=== PATIENT | male | born 1970 | race Caucasian/White ===

== ENCOUNTER 2019-04-13 13:45 | Emergency (ER) | payer SELFPAY ==
[~2019-04-13] VITALS: Ht 177.8 cm; Wt 89.8 kg
--- NOTE | 2019-04-13 14:12 | REP ---
Portable chest x-ray: Single view. History: Chest pain. Findings: The lungs are symmetrically aerated and free of infiltrate. The left pleural angle is sharp. The right lateral pleural angle is excluded from the field of view at the bottom edge of the film however there does not appear to be significant right pleural effusion. The heart is not enlarged. Pulmonary vasculature is not increased. Impression: No acute disease. Electronically Signed by Toby Mcgrath MD 04/13/2019 02:03 P
[2019-04-13 14:13] LABS: BASO % 0.4 % (0.0-1.0); EOS # 0.1 10^3/uL (0.0-0.5); EOS % 1.1 % (0.0-3.0); HEMATOCRIT 51.6 % (42.0-52.0); HEMOGLOBIN 16.4 g/dl (13.5-17.5); LYMPH # 0.9 10^3/uL (1.5-5.0); LYMPH % 19.8 % (24.0-44.0); MEAN CORPUSCULAR HEMOGLOBIN 28.3 pg (27.0-33.0); MEAN CORPUSCULAR HGB CONC 31.8 g/dl (32.0-36.5); MEAN CORPUSCULAR VOLUME 89.1 fl (80.0-96.0); MONO # 0.7 10^3/uL (0.0-0.8); MONO % 13.7 % (0.0-5.0); NEUTROPHILS # 3.1 10^3/uL (1.5-8.5); NEUTROPHILS % 64.8 % (36.0-66.0); PLATELET COUNT, AUTOMATED 174 10^3/uL (150-450); RED BLOOD COUNT 5.79 10^6/uL (4.30-6.10); WHITE BLOOD COUNT 4.8 10^3/uL (4.0-10.0)
--- NOTE | 2019-04-13 14:50 | REP ---
CT BRAIN WITHOUT CONTRAST: HISTORY: Hand numbness. No comparison brain imaging. FINDINGS: Preliminary digital gastroenterology physician radiograph is unremarkable. There is moderate mucosal thickening affecting the right maxillary, bilateral ethmoid, and bilateral frontal sinuses. No intraorbital abnormality is appreciated. On soft tissue window settings, the lateral, third, and fourth ventricles are normal in size and position. There is a small subarachnoid cyst in the posterior fossa to the left of midline. No other extra-axial fluid collection is seen. There is no evidence of infarct or hemorrhage. No mass or midline shift is seen. IMPRESSION: No acute intracranial abnormality. Small posterior fossa subarachnoid cyst. Bilateral ethmoid, sphenoid, and right maxillary sinusitis changes. Electronically Signed by Toby Mcgrath MD 04/13/2019 03:28 P
[2019-04-13 14:52] LABS: ALBUMIN 4.1 GM/DL (3.2-5.2); ALT/SGPT 63 U/L (12-78); BILIRUBIN,DIRECT 0.1 MG/DL (0.0-0.2); BILIRUBIN,TOTAL 0.5 MG/DL (0.2-1.0); BLOOD UREA NITROGEN 10 MG/DL (7-18); CALCIUM LEVEL 9.2 MG/DL (8.5-10.1); CARBON DIOXIDE LEVEL 28 MEQ/L (21-32); CHLORIDE LEVEL 101 MEQ/L (98-107); CK-MB VALUE MASS 5.7 NG/ML (<3.6); CPK CREATINE PHOSPHOKINASE 271 U/L (39-308); CREATININE FOR GFR 0.93 MG/DL (0.70-1.30); GLOMERULAR FILTRATION RATE > 60.0 (>60); GLUCOSE, FASTING 80 MG/DL (70-100); LIPASE 84 U/L (73-393); MAGNESIUM LEVEL 2.1 MG/DL (1.8-2.4); NT-PRO BNP 25 PG/ML (<125); SODIUM LEVEL 138 MEQ/L (136-145); THYROID STIMULATING HORMONE 0.994 uIU/ML (0.358-3.740); TOTAL PROTEIN 8.1 GM/DL (6.4-8.2); TROPONIN I < 0.02 NG/ML (< 0.10)
[2019-04-13] MEDS ORDERED: CHLORTHALIDONE 12.5MG PER 1/2 TABLET PO ONE (15:30)
--- NOTE | 2019-04-13 16:57 | REP ---
MRI brain without contrast: History: Sensation changes left upper extremity. . Comparison study: Comparison is made with today's CT study of the brain. Technique: Axial and sagittal imaging planes are utilized for T1 and T2-weighted scans. Sequences include spin-echo, fast spin echo, FLAIR, and diffusion weighted sequences. MRI findings: No bony calvarial lesion is seen. Craniocervical junction and upper cervical cord are normal in appearance. There is no MR evidence of significant paranasal sinus disease. No intraorbital abnormality is seen. There is a small posterior fossa subarachnoid cyst as seen on today's CT study. The lateral, third, and fourth ventricles are normal in size and position. Simental-white differentiation pattern is intact above and below the tentorium. There is no evidence of intracranial hemorrhage. No mass, infarction, extra-axial fluid collection or midline shift is seen. No abnormal white matter lesion is seen. Impression: There is a small subarachnoid cyst in the posterior fossa as seen on CT. Otherwise negative noncontrast brain MRI study. Electronically Signed by Toby Mcgrath MD 04/13/2019 04:49 P
[2019-04-13] MEDS ORDERED: CHLO125TA PO (18:31)
--- NOTE | 2019-04-13 18:45 | REPVR ---
PROCEDURE INFORMATION: Exam: MR Angiogram Head Without Contrast, Arteries Exam date and time: 04/13/2019 4:14 PM Age: 48 years old Clinical indication: Numbness; Additional info: Sensation changes lue TECHNIQUE: Imaging protocol: MR angiogram head without contrast. Exam focused on the arteries. 3D rendering: MIP and/or 3D reconstructed images were created by the technologist. COMPARISON: CT Head without contrast 2019-04-13 14:26 FINDINGS: Right internal carotid artery: Unremarkable. Intracranial segment is patent with no significant stenosis. No aneurysm. Right anterior cerebral artery: Fenestrated right anterior cerebral artery A1 segment. Right middle cerebral artery: Unremarkable. No occlusion or significant stenosis. No aneurysm. Right posterior cerebral artery: Patent right [employer]. Right vertebral artery: Unremarkable. No occlusion or significant stenosis. No aneurysm. Left internal carotid artery: Unremarkable. Intracranial segment is patent with no significant stenosis. No aneurysm. Left anterior cerebral artery: Unremarkable. No occlusion or significant stenosis. No aneurysm. Left middle cerebral artery: Unremarkable. No occlusion or significant stenosis. No aneurysm. Left posterior cerebral artery: Unremarkable. No occlusion or significant stenosis. No aneurysm. Left vertebral artery: Unremarkable. No occlusion or significant stenosis. No aneurysm. Basilar artery: Unremarkable. No occlusion or significant stenosis. No aneurysm. Sinuses: Moderate paranasal sinus disease. IMPRESSION: No acute abnormality. Electronically signed by: Davonte Linda On 04/13/2019 18:44:49 PM
[2019-04-13 18:48] VITALS: BP 152/91
--- NOTE | 2019-04-15 05:57 | ECGEPIP ---
[facility] - ED Test Date: 2019-04-13 Pat Name: FRANNY SUE Department: Room: - Gender: Male Dental Insurance Coordinator: : 1970 Requested By: Kelsey Rodriguez Order Number: [id number] Reading MD: Ta Santos Measurements Intervals [place] Rate: 83 P: 65 HI: 151 QRS: 18 QRSD: 96 T: 51 QT: 354 QTc: 418 Interpretive Statements SINUS RHYTHM NO PRIORS FOR COMPARISON Electronically Signed on 04-15-2019 5:57:22 EST by Ta Santso
--- NOTE | 2019-04-16 14:33 | ED PDOC ---
Post-Departure Follow-Up certified letter sent to pt re formal read of mri. obtain pcp name and fax for l [facility] term fu. if no pcp refer to [facility] and fax Micah Samaniego MD Apr 16, 2019 14:33
== END 2019-04-13 18:51 | disposition home or self-care (01) ==
LOC: M ED 13:45
DX: I10 Essential (primary) hypertension (principal); G93.0 Cerebral cysts